=== PATIENT | female | born 1980 | race Caucasian/White ===

== ENCOUNTER 2017-12-20 15:20 | Outpatient (CLI) | payer BC ==
[~2017-12-20] VITALS: Ht 165.1 cm; Wt 80.9 kg
[2017-12-20 15:35] VITALS: BP 107/57; PULSE 77; TEMP 98.2
[2017-12-20] MEDS ORDERED: PRENATAL (15:42)
[2017-12-20 16:00] VITALS: BP 102/57; PULSE 77; TEMP 98.2
[2017-12-20 16:30] VITALS: BP 128/62; PULSE 88
== END 2017-12-20 17:25 | disposition home or self-care (01) ==
LOC: LDRO 15:20 → LDR 15:25 → LDRO 17:25
DX: O09.523 Supervision of elderly multigravida, third trimester (principal); Z3A.37 37 weeks gestation of pregnancy
CPT/HCPCS: OP

== ENCOUNTER 2018-01-03 07:11 | Inpatient (IN) | payer BC ==
[~2018-01-03] VITALS: Ht 160 cm; Wt 81.8 kg
[2018-01-03] VITALS (59 sets, daily range): BP systolic 86–136; BP diastolic 50–71; PULSE 64–126; TEMP 97.4–98.3
[~2018-01-03 07:11] MED LIST: PRENATAL
[2018-01-03 08:58] LABS: BASO # 0.1 (0.0-0.2); BASO % 0.8 % (0.0-2.0); EOS # 0.3 (0.0-0.7); EOS % 2.3 % (0-4.0); GRAN # 8.3 (1.4-6.5); GRAN % 69.9 % (42.2-75.2); HEMATOCRIT 37.7 % (37.0-47.0); HEMOGLOBIN 12.7 g/dl (12.5-16.0); LYMPH # 2.5 (1.2-3.4); LYMPH % 21.3 % (20.0-51.0); MEAN CELL VOLUME 86 fl (80.0-100.0); MEAN CORPUSCULAR HEMOGLOBIN 29 pg (27.0-31.0); MEAN CORPUSCULAR HGB CONC 34 g/dl (33.0-37.0); MEAN PLATELET VOLUME 10.3 fl (7.4-10.4); MONO # 0.6 (0.1-0.6); MONO % 5.3 % (1.7-9.3); PLATELET COUNT 250 K/mm3 (130-400); RED BLOOD COUNT 4.38 M/mm3 (4.10-5.30); REDCELL DISTRIBUTION WIDTH-CV 12.7 % (11.5-14.5)
[2018-01-04 00:15] VITALS: BP 110/58; PULSE 85
[2018-01-04 05:10] VITALS: BP 114/64; PULSE 75; TEMP 98.4
[2018-01-04 09:00] VITALS: BP 119/50; PULSE 74; TEMP 98
[2018-01-04 19:00] VITALS: BP 109/49; PULSE 63; TEMP 97.9
[2018-01-05 07:58] VITALS: BP 115/61; PULSE 74
[2018-01-05] MEDS ORDERED: MOTRIN 600600 MG/TAB PO (08:45)
[2018-01-05] MEDS ORDERED: PERCOCET 325 MG1 TA2 PO (08:46)
== END 2018-01-05 10:55 | disposition home or self-care (01) | DRG 775 ==
LOC: LDR 07:11 → OB 01-04 00:45
PROVIDERS: Obstetrics & Gynecology
PROC: 10E0XZZ Delivery of Products of Conception, External Approach (ICD-10-PCS; principal; 2018-01-03)
PROC: 3E033VJ Introduction of Other Hormone into Peripheral Vein, Percutaneous Approach (ICD-10-PCS; 2018-01-03)
PROC: 0KQM0ZZ Repair Perineum Muscle, Open Approach (ICD-10-PCS; 2018-01-03)
DX: O70.1 Second degree perineal laceration during delivery (principal); Z37.0 Single live birth; Z3A.39 39 weeks gestation of pregnancy
CPT/HCPCS: J2590; J2795; J7120

== ENCOUNTER → 2021-08-18 | Outpatient (CLI) | payer BC ==
[~2021-08-18] MED LIST changes: +MOTRIN 600600 MG/TAB PO; +PERCOCET 325 MG1 TA2 PO
== END ==
LOC: MC.RAD 10:21
DX: Z12.31 Encounter for screening mammogram for malignant neoplasm of breast (principal)